=== PATIENT | male | born 2000 | race African-American/Black ===

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

== ENCOUNTER → 2019-03-15 | Outpatient (CLI) | payer OTHER ==
[2019-03-15 12:30] LABS: BASO # 0.1 10^3/uL (0.0-0.2); BASO % 0.9 % (0.0-1.0); EOS # 0.5 10^3/uL (0.0-0.5); EOS % 5.8 % (0.0-3.0); HEMATOCRIT 31.3 % (42.0-52.0); HEMOGLOBIN 7.6 g/dl (13.5-17.5); LYMPH # 1.7 10^3/uL (1.5-5.0); LYMPH % 19.5 % (24.0-44.0); MEAN CORPUSCULAR HEMOGLOBIN 15.8 pg (27.0-33.0); MEAN CORPUSCULAR HGB CONC 24.3 g/dl (32.0-36.5); MEAN CORPUSCULAR VOLUME 64.9 fl (80.0-96.0); MONO # 0.9 10^3/uL (0.0-0.8); MONO % 10.6 % (0.0-5.0); NEUTROPHILS # 5.3 10^3/uL (1.5-8.5); NEUTROPHILS % 62.8 % (36.0-66.0); PLATELET COUNT, AUTOMATED 437 10^3/uL (150-450); RED BLOOD COUNT 4.82 10^6/uL (4.30-6.10); WHITE BLOOD COUNT 8.5 10^3/uL (4.0-10.0)
[2019-03-15 13:18] LABS: BLOOD UREA NITROGEN 11 MG/DL (7-18); C REACTIVE PROTEIN QUANTITATIV 1.44 MG/DL (0.00-0.30); CALCIUM LEVEL 8.2 MG/DL (8.5-10.1); CARBON DIOXIDE LEVEL 26 MEQ/L (21-32); CHLORIDE LEVEL 111 MEQ/L (98-107); CREATININE FOR GFR 0.53 MG/DL (0.70-1.30); FERRITIN 3 NG/ML (26-388); FOLATE 23.5 NG/ML; FREE T4 0.97 NG/DL (0.78-1.33); GLUCOSE, FASTING 79 MG/DL (70-100); IRON (FE) 12 UG/DL (65-175); PERCENT SATURATION 4.4 % (19.7-50.0); SODIUM LEVEL 143 MEQ/L (136-145); TOTAL IRON BINDING CAPACITY 274 UG/DL (250-450); VITAMIN B12 LEVEL 366 PG/ML
[2019-03-15 13:30] LABS: ERYTHROCYTE SEDIMENTATION RATE 12 mm/hr (0-15)
== END ==
LOC: M LAB 11:27
PROVIDERS: ATTEND Internal Medicine Gastroenterology
DX: K50.80 Crohn's disease of both small and large intestine without complications (principal)

== ENCOUNTER → 2019-03-28 | Outpatient (CLI) | payer OTHER ==
[~2019-03-28] MED LIST changes: +E-Z-GAS II EFFERVESCENT PACKET (SODIUM BICARB./CITRIC ACID/SIMETHICONE) As Ordered ONE; +E-Z-HD 98% w/w 340GM SUSP BTL As Ordered ONE; +E-Z-PAQUE 96% w/w SUSP 176GM BTL As Ordered ONE
--- NOTE | 2019-03-29 11:15 | REP ---
UPPER GI AIR CONTRAST AND SMALL BOWEL FOLLOW THROUGH The procedure was performed under the direct supervision of Dr. Thurman. The images were reviewed with Dr. Thurman The comfort station supervisor film shows no organomegaly or pathological masses. The intestinal gas pattern is non-specific. Liquid barium and gas producing crystals were given in the erect position as well as liquid barium in the prone oblique position in order to perform a double contrast upper GI examination. Additionally liquid barium was given at the end of the examination in order to perform a small bowel follow through. The oral and pharyngeal stages of deglutition are unremarkable. Esophageal transport is prompt and efficient and there is no esophagitis, stricture, mucosal ring or hiatal hernia. There is gastroesophageal reflux demonstrated to above the level of the alfonzo. The stomach bueno are normally outlined . The rugal folds are smooth and regular. There is no gastritis neoplasm or ulcer disease. Within the descending duodenum there is mucosal irregularity and narrowing. These findings are consistent with the patient's history of Crohn disease. The visualized portion of the proximal small bowel appears normal in course and caliber. The barium column was followed through the small bowel to the level of the terminal ileum. Small bowel transit time is approximately 60 minutes . During fluoroscopy gentle palpation shows all loops are freely movable and pliable. There are no fixed or angulated loops. The small bowel mucosal pattern is normal in course and caliber. There is no transition to suggest a partial small-bowel obstruction. Spot filming of the terminal ileum shows a segment of mucosal irregularity measuring approximately 9 cm. These findings are consistent with the patient's history of Crohn's disease. Impression: 1. In the descending duodenum there is mucosal irregularity and narrowing. In the terminal ileum there is a segment of mucosal irregularity measuring approximately 9 cm. These findings are consistent with the patient's history of Crohn's disease. 2. There is gastroesophageal reflux demonstrated to above the level of the alfonzo. 3.6 minutes of fluoro time was utilized for this procedure. Electronically Signed by QUIN Dhillon 03/28/2019 05:38 P Electronically Signed by Mumtaz Thurman MD 03/29/2019 11:06 A
== END ==
LOC: M RAD 08:03
PROVIDERS: ATTEND Internal Medicine Gastroenterology
DX: K50.80 Crohn's disease of both small and large intestine without complications (principal)

== ENCOUNTER 2019-05-19 12:51 | Day surgery (SDC) | payer OTHER ==
[~2019-05-19] VITALS: Ht 167.6 cm; Wt 64.4 kg
[~2019-05-19 12:51] MED LIST changes: +DOCU100C16 PO; -E-Z-GAS II EFFERVESCENT PACKET (SODIUM BICARB./CITRIC ACID/SIMETHICONE) As Ordered ONE; -E-Z-HD 98% w/w 340GM SUSP BTL As Ordered ONE; -E-Z-PAQUE 96% w/w SUSP 176GM BTL As Ordered ONE; +FERR325T3 PO; +NS 1,000 ML IV ONE
[2019-05-19] MEDS ORDERED: LIDOCAINE 2% INJ 100 MG/5 ML SDV (FOR ANES.) As Ordered ONE (14:09)
[2019-05-19] MEDS ORDERED: PROPOFOL 200 MG/20 ML VIAL As Ordered ONE ×2 (14:09→14:27)
--- NOTE | 2019-05-19 14:56 | ROOR ---
Patient Name: Gwendolyn Vallejo Procedure Date: 05/19/2019 2:07 PM Date of : 2000 Age: 18 Room: [facility] Gender: Male Note Status: Finalized Procedure: Upper GI endoscopy Indications: Iron deficiency anemia, Crohn's disease Providers: Bridger Lara MD Referring MD: Johnathan SAMUEL MD Requesting Provider: Medicines: Monitored Anesthesia Care Complications: No immediate complications. Procedure: Pre-Anesthesia Assessment: - Prior to the procedure, a History and Physical was performed, and patient medications and allergies were reviewed. The patient is competent. The risks and benefits of the procedure and the sedation options and risks were discussed with the patient. All questions were answered and informed consent was obtained. Patient identification and proposed procedure were verified by the physician, the nurse and the anesthesiologist in the procedure room. Mental Status Examination: alert and oriented. Airway Examination: normal oropharyngeal airway and neck mobility. Respiratory Examination: clear to auscultation. CV Examination: normal. Prophylactic Antibiotics: The patient does not require prophylactic antibiotics. Prior Anticoagulants: The patient has taken no previous anticoagulant or antiplatelet agents. ASA Grade Assessment: III - A patient with severe systemic disease. After reviewing the risks and benefits, the patient was deemed in satisfactory condition to undergo the procedure. The anesthesia plan was to use monitored anesthesia care (MAC). Immediately prior to administration of medications, the patient was re-assessed for adequacy to receive sedatives. The heart rate, respiratory rate, oxygen saturations, blood pressure, adequacy of pulmonary ventilation, and response to care were monitored throughout the procedure. The physical status of the patient was re-assessed after the procedure. The Endoscope was introduced through the mouth, and advanced to the duodenal bulb. The Colonoscope was introduced through the mouth, and advanced to the second part of duodenum. The upper GI endoscopy was accomplished without difficulty. The patient tolerated the procedure well. Findings: No gross lesions were noted in the entire esophagus. The Z-line was irregular and was found 42 cm from the incisors. Scattered mild inflammation characterized by erythema, friability and granularity was found in the gastric antrum. Biopsies were taken with a cold forceps for Helicobacter pylori testing. Verification of patient identification for the specimen was done by the physician and nurse using the patient's name, date and medical record number. Estimated blood loss was minimal. An acquired benign-appearing, intrinsic severe stenosis was found in the first portion of the duodenum and was non-traversed. The scope was withdrawn and replaced with the 'babyscope' because of difficulty passing the scope and in order to visualize the major papilla. Biopsies were taken with a cold forceps for histology. Impression: - No gross lesions in esophagus. - Z-line irregular, 42 cm from the incisors. - Gastritis. Biopsied. - Acquired duodenal stenosis. Biopsied. Recommendation: - Patient has a contact number available for emergencies. The signs and symptoms of potential delayed complications were discussed with the patient. Return to normal activities tomorrow. Written discharge instructions were provided to the patient. - Chopped diet and mechanical soft diet. - Continue present medications. - Use Protonix (pantoprazole) 40 mg PO twice daily - to be taken in morning (1/2 hour before breakfast) and at bedtime ( atleast 3 hours after last meal) for 3 months. - Repeat upper endoscopy in 3 months to check healing and for surveillance based on pathology results. - Return to GI clinic in [facility] (address [address], [address], [place] [address]) in 4 -- 6 weeks. Please call GI clinic @ [phone] for apppointment date and time. - Return to primary care physician. Bridger Lara MD Bridger Lara MD 05/19/2019 2:56:13 PM Electronically signed by Bridger Lara MD Number of Addenda: 0 Note Initiated On: 05/19/2019 2:07 PM Estimated Blood Loss: Estimated blood loss was minimal.
[2019-05-19 15:15] VITALS: BP 128/58
--- NOTE | 2019-05-19 15:38 | ROOR ---
Patient Name: Gwendolyn Vallejo Procedure Date: 05/19/2019 2:07 PM Date of : 2000 Age: 18 Room: [facility] Gender: Male Note Status: Finalized Procedure: Colonoscopy Indications: Iron deficiency anemia, Disease activity assessment of Crohn's disease of the small bowel and colon, Assess therapeutic response to therapy of Crohn's disease of the small bowel and colon Providers: Bridger Lara MD Referring MD: Johnathan SAMUEL MD Requesting Provider: Medicines: Monitored Anesthesia Care Complications: No immediate complications. Procedure: Pre-Anesthesia Assessment: - Prior to the procedure, a History and Physical was performed, and patient medications and allergies were reviewed. The patient is competent. The risks and benefits of the procedure and the sedation options and risks were discussed with the patient. All questions were answered and informed consent was obtained. Patient identification and proposed procedure were verified by the physician, the nurse and the anesthesiologist in the procedure room. Mental Status Examination: normal. Airway Examination: normal oropharyngeal airway and neck mobility. Respiratory Examination: clear to auscultation. CV Examination: normal. Prophylactic Antibiotics: The patient does not require prophylactic antibiotics. Prior Anticoagulants: The patient has taken no previous anticoagulant or antiplatelet agents. ASA Grade Assessment: II - A patient with mild systemic disease. After reviewing the risks and benefits, the patient was deemed in satisfactory condition to undergo the procedure. The anesthesia plan was to use monitored anesthesia care (MAC). Immediately prior to administration of medications, the patient was re-assessed for adequacy to receive sedatives. The heart rate, respiratory rate, oxygen saturations, blood pressure, adequacy of pulmonary ventilation, and response to care were monitored throughout the procedure. The physical status of the patient was re-assessed after the procedure. The Colonoscope was introduced through the anus and advanced to the cecum, identified by appendiceal orifice and ileocecal valve. The colonoscopy was performed without difficulty. The patient tolerated the procedure well. The quality of the bowel preparation was poor. The terminal ileum, ileocecal valve, appendiceal orifice, and rectum were photographed. Scope insertion time was 4 minutes. Scope withdrawal time was 8 minutes. The total duration of the procedure was 12 minutes. Findings: The perianal and digital rectal examinations were normal. A benign-appearing, intrinsic severe stenosis measuring 9 mm (inner diameter) was found at the ileocecal valve and was non-traversed. Biopsies were taken with a cold forceps for histology. Verification of patient identification for the specimen was done by the physician and nurse using the patient's name, date and medical record number. Estimated blood loss was minimal. A healed ulcer was found in the transverse colon and in the ascending colon. The scar tissue was healthy in appearance. A scattered area of moderately erythematous mucosa was found in the recto-sigmoid colon. Biopsies were taken with a cold forceps for histology. Semi-liquid semi-solid stool was found in the entire colon, interfering with visualization. Lavage of the area was performed using a large amount of sterile water, resulting in incomplete clearance with fair visualization. Impression: - Preparation of the colon was poor. - Stricture at the ileocecal valve. Biopsied. - Scar in the transverse colon and in the ascending colon. - Erythematous mucosa in the recto-sigmoid colon. Biopsied. - Stool in the entire examined colon. Recommendation: - Patient has a contact number available for emergencies. The signs and symptoms of potential delayed complications were discussed with the patient. Return to normal activities tomorrow. Written discharge instructions were provided to the patient. - Chopped diet and mechanical soft diet. - Continue present medications. - Await pathology results. - Repeat colonoscopy in 6 months to evaluate the response to therapy and because the bowel preparation was poor. - Return to GI clinic in [facility] (address [address], [address], [place], [address]) in 4 -- 6 weeks. Please call GI clinic @ [phone] for apppointment date and time. - Return to primary care physician. Bridger Lara MD Bridger Lara MD 05/19/2019 3:37:56 PM Electronically signed by Bridger Lara MD Number of Addenda: 0 Note Initiated On: 05/19/2019 2:07 PM Estimated Blood Loss: Estimated blood loss: none.
== END 2019-05-19 15:50 | disposition home or self-care (01) ==
LOC: M OPP 12:51
PROVIDERS: ATTEND Internal Medicine Gastroenterology
DX: K50.812 Crohn's disease of both small and large intestine with intestinal obstruction (principal); K63.89 Other specified diseases of intestine; D50.9 Iron deficiency anemia, unspecified; K22.8 Other specified diseases of esophagus; K29.70 Gastritis, unspecified, without bleeding; K31.5 Obstruction of duodenum; K50.90 Crohn's disease, unspecified, without complications; Z79.899 Other long term (current) drug therapy

== ENCOUNTER 2019-06-01 16:05 | Outpatient (CLI) | payer OTHER ==
[~2019-06-01] VITALS: Ht 167.6 cm; Wt 64.4 kg
[~2019-06-01 16:05] MED LIST changes: -NS 1,000 ML IV ONE
[2019-06-01 16:23] VITALS: BP 148/94
[2019-06-01 16:50] VITALS: BP 138/61
[2019-06-01] MEDS ORDERED: PANT20TA2 PO (16:50)
[2019-06-01] MEDS ORDERED: VEDOLIZUMAB 300 MG in NS 250 ML IV ONE (17:00)
[2019-06-01 17:45] VITALS: BP 131/59
[2019-06-01 18:00] VITALS: BP 143/63
== END 2019-06-01 18:00 | disposition home or self-care (01) ==
LOC: M INFU 16:05
PROVIDERS: ATTEND Internal Medicine Gastroenterology
DX: K50.90 Crohn's disease, unspecified, without complications (principal); Z79.52 Long term (current) use of systemic steroids; Z79.899 Other long term (current) drug therapy
CPT/HCPCS: 96365; J3380

== ENCOUNTER → 2019-06-16 | Outpatient (CLI) | payer OTHER ==
[~2019-06-16] VITALS: Ht 167.6 cm; Wt 64.4 kg
[~2019-06-16] MED LIST changes: +PANT20TA2 PO; +VEDOLIZUMAB 300 MG in NS 250 ML IV ONE
[2019-06-16 16:43] VITALS: BP 138/63
[2019-06-16 17:39] VITALS: BP 135/60
== END ==
LOC: M INFU 16:23
PROVIDERS: ATTEND Internal Medicine Gastroenterology
DX: K50.90 Crohn's disease, unspecified, without complications (principal)
CPT/HCPCS: 96365; J3380

== ENCOUNTER → 2019-08-30 | Outpatient (CLI) | payer OTHER ==
[~2019-08-30] MED LIST changes: -VEDOLIZUMAB 300 MG in NS 250 ML IV ONE
[2019-08-30 10:31] LABS: BASO # 0.1 10^3/uL (0.0-0.2); BASO % 0.9 % (0.0-1.0); EOS # 0.5 10^3/uL (0.0-0.5); EOS % 5.7 % (0.0-3.0); HEMATOCRIT 43.2 % (42.0-52.0); LYMPH # 1.9 10^3/uL (1.5-5.0); LYMPH % 23.7 % (24.0-44.0); MEAN CORPUSCULAR HEMOGLOBIN 26.2 pg (27.0-33.0); MEAN CORPUSCULAR HGB CONC 30.1 g/dl (32.0-36.5); MEAN CORPUSCULAR VOLUME 86.9 fl (80.0-96.0); MONO # 0.8 10^3/uL (0.0-0.8); MONO % 9.8 % (0.0-5.0); NEUTROPHILS # 4.8 10^3/uL (1.5-8.5); NEUTROPHILS % 59.6 % (36.0-66.0); PLATELET COUNT, AUTOMATED 310 10^3/uL (150-450); RED BLOOD COUNT 4.97 10^6/uL (4.30-6.10)
[2019-08-30 10:55] LABS: ERYTHROCYTE SEDIMENTATION RATE 4 mm/hr (0-15)
[2019-08-30 10:58] LABS: ALBUMIN 3.1 GM/DL (3.2-5.2); ALT/SGPT 14 U/L (12-78); BILIRUBIN,DIRECT 0.1 MG/DL (0.0-0.2); BILIRUBIN,TOTAL 0.5 MG/DL (0.2-1.0); BLOOD UREA NITROGEN 8 MG/DL (7-18); C REACTIVE PROTEIN QUANTITATIV 1.02 MG/DL (0.00-0.30); CREATININE FOR GFR 0.67 MG/DL (0.70-1.30); FERRITIN 32 NG/ML (26-388); IRON (FE) 44 UG/DL (65-175); PERCENT SATURATION 16.1 % (19.7-50.0); TOTAL IRON BINDING CAPACITY 273 UG/DL (250-450)
[2019-08-30 11:32] LABS: VITAMIN B12 LEVEL 254 PG/ML
[2019-08-30 11:33] LABS: FOLATE 7.2 NG/ML
== END ==
LOC: M LAB 09:52
PROVIDERS: ATTEND Internal Medicine Gastroenterology
DX: D50.9 Iron deficiency anemia, unspecified (principal)

== ENCOUNTER 2019-09-07 15:57 | Outpatient (CLI) | payer OTHER ==
[~2019-09-07] VITALS: Ht 167.6 cm; Wt 64.4 kg
[2019-09-07 16:00] VITALS: BP 118/57
[2019-09-07] MEDS ORDERED: ENTY1INJ IV (16:26)
[2019-09-07] MEDS ORDERED: VEDOLIZUMAB 300 MG in NS 250 ML IV ONE (16:30)
[2019-09-07 17:10] VITALS: BP 149/66
== END 2019-09-07 17:10 | disposition home or self-care (01) ==
LOC: M INFU 15:57
PROVIDERS: ATTEND Internal Medicine Gastroenterology
DX: K50.90 Crohn's disease, unspecified, without complications (principal)
CPT/HCPCS: 96365; J3380

== ENCOUNTER → 2019-12-26 | Outpatient (CLI) | payer OTHER ==
[~2019-12-26] MED LIST changes: +ENTY1INJ IV; -PANT20TA2 PO; +PANT20TA6 PO; +PANT40TA29 PO; -PANT40TA3 PO
[2020-01-22 21:15] LABS: BASO # 0.1 10^3/uL (0.0-0.2); BASO % 0.8 % (0.0-1.0); EOS # 0.4 10^3/uL (0.0-0.5); EOS % 4.7 % (0.0-3.0); HEMATOCRIT 33.8 % (42.0-52.0); HEMOGLOBIN 9.5 g/dl (13.5-17.5); LYMPH # 1.9 10^3/uL (1.5-5.0); LYMPH % 23.9 % (24.0-44.0); MEAN CORPUSCULAR HEMOGLOBIN 21.3 pg (27.0-33.0); MEAN CORPUSCULAR HGB CONC 28.1 g/dl (32.0-36.5); MEAN CORPUSCULAR VOLUME 75.8 fl (80.0-96.0); MONO # 0.6 10^3/uL (0.0-0.8); MONO % 7.9 % (0.0-5.0); NEUTROPHILS # 4.9 10^3/uL (1.5-8.5); NEUTROPHILS % 62.3 % (36.0-66.0); PLATELET COUNT, AUTOMATED 279 10^3/uL (150-450); RED BLOOD COUNT 4.46 10^6/uL (4.30-6.10); WHITE BLOOD COUNT 7.8 10^3/uL (4.0-10.0)
== END ==
LOC: M LAB 17:07
PROVIDERS: ATTEND Internal Medicine Gastroenterology
DX: D50.9 Iron deficiency anemia, unspecified (principal); K50.80 Crohn's disease of both small and large intestine without complications

== ENCOUNTER 2020-01-12 08:48 | Outpatient (CLI) | payer OTHER ==
[~2020-01-12 08:48] MED LIST changes: +VEDOLIZUMAB 300MG VIAL (ENTYVIO) (J3380 PER 1MG) ONE
== END 2020-01-12 10:25 | disposition home or self-care (01) ==
LOC: M INFU 08:48
PROVIDERS: ATTEND Internal Medicine Gastroenterology
DX: K50.90 Crohn's disease, unspecified, without complications (principal)
CPT/HCPCS: 96365; J3380

== ENCOUNTER 2022-10-21 12:29 | Emergency (ER) | payer OTHER ==
[~2022-10-21 12:29] MED LIST changes: -IBUP200T45 PO; +IBUP200T46 PO; -VEDOLIZUMAB 300MG VIAL (ENTYVIO) (J3380 PER 1MG) ONE
[2022-10-21] MEDS ORDERED: PIPERACILLIN/TAZOBACTAM SOD 4.5 GM in D5W MINI-BAG PLUS 50 ML IV ONE (12:45)
[2022-10-21] MEDS ORDERED: NS 1,800 ML in IV 1 EA IV ONE (12:45)
[2022-10-21 13:19] LABS: ABG BASE EXCESS -10.6 (-2.0-2.0); ABG HCO3 12.6 MMOL/L (22.0-26.0); ABG O2 SATURATION 98.3 % (95.0-99.0); ABG PARTIAL PRESSURE CO2 20.1 mmHg (35.0-45.0); ABG PARTIAL PRESSURE O2 115.8 mmHg (75.0-100.0); ABG STANDARD HCO3 15.8 MMOL/L. (22.0-26.0); ABG TOTAL CO2 13.2 MMOL/L (22.0-29.0); ABG pH (ARTERIAL) 7.416 UNITS (7.350-7.450)
[2022-10-21 13:46] LABS: AMPHETAMINES LEVEL URINE NEGATIVE (NEGATIVE); BARBITURATES URINE NEGATIVE (NEGATIVE); BENZODIAZEPINES URINE NEGATIVE (NEGATIVE); CANNABINOIDS URINE NEGATIVE (NEGATIVE); COCAINE METABOLITE URINE NEGATIVE (NEGATIVE); METHADONE URINE NEGATIVE (NEGATIVE); OPIATES URINE NEGATIVE (NEGATIVE); PHENCYCLIDINE URINE NEGATIVE (NEGATIVE)
[2022-10-21 13:55] LABS: BASO % 0.2 % (0.0-1.0); EOS % 0.1 % (0.0-3.0); HEMATOCRIT 23.8 % (42.0-52.0); LYMPH # 0.4 10^3/uL (1.5-5.0); LYMPH % 1.7 % (24.0-44.0); MEAN CORPUSCULAR HEMOGLOBIN 17.4 pg (27.0-33.0); MEAN CORPUSCULAR VOLUME 60.1 fl (80.0-96.0); MONO # 1.3 10^3/uL (0.0-0.8); MONO % 6.3 % (2.0-8.0); NEUTROPHILS # 18.9 10^3/uL (1.5-8.5); NEUTROPHILS % 90.5 % (36.0-66.0); RED BLOOD COUNT 3.96 10^6/uL (4.30-6.10); WHITE BLOOD COUNT 20.9 10^3/uL (4.0-10.0)
[2022-10-21 14:05] LABS: INR 1.76; PROTHROMBIN TIME 20.8 SECONDS (12.5-14.5)
[2022-10-21 14:06] LABS: PARTIAL THROMBOPLASTIN TIME 38.9 SECONDS (24.8-34.2)
[2022-10-21 14:11] LABS: AMORPHOUS SEDIMENT SMALL (NEGATIVE); APPEARANCE, URINE CLOUDY (CLEAR); BACTERIA, URINE AUTO NEGATIVE (NEGATIVE); BILIRUBIN, URINE AUTO NEGATIVE (NEGATIVE); BLOOD, URINE BLOOD 1+ (NEGATIVE); COLOR, URINE AMBER (YELLOW); GLUCOSE, URINE (UA) AUTO NEGATIVE (NEGATIVE); GRANULAR CAST, URINE AUTO 7 /LPF; KETONE, URINE AUTO NEGATIVE (NEGATIVE); LEUKOCYTE ESTERASE, URINE AUTO TRACE (NEGATIVE); MUCUS, URINE SMALL (NEGATIVE); NITRITE, URINE AUTO NEGATIVE (NEGATIVE); PROTEIN, URINE AUTO 1+ mg/dL (NEGATIVE); RBC, URINE AUTO 7 /HPF (0-3); SPECIFIC GRAVITY URINE AUTO 1.017 (1.002-1.035); SQUAMOUS EPITHELIAL CELL UR AU 0 /HPF (0-6); UROBILINOGEN, URINE AUTO 0.2 mg/dL (0.0-2.0); WBC, URINE AUTO 9 /HPF (0-3)
[2022-10-21 14:26] LABS: HEMOGLOBIN 6.9 g/dl (13.5-17.5); PLATELET COUNT, AUTOMATED 96 10^3/uL (150-450)
[2022-10-21 14:28] LABS: ETHYL ALCOHOL (ETHANOL) < 0.003 % (0.000-0.010)
[2022-10-21 14:29] LABS: AMYLASE 165 U/L (30-118); CPK CREATINE PHOSPHOKINASE 736 U/L (46-171)
[2022-10-21 14:35] LABS: INFLUENZA A AMPLIFICATION NEGATIVE (NEGATIVE); INFLUENZA B AMPLIFICATION NEGATIVE (NEGATIVE)
[2022-10-21 14:43] LABS: ALBUMIN 2.2 G/DL (3.2-5.2); ALKALINE PHOSPHATASE 90 U/L (46-116); ALT/SGPT 52 U/L (7.0-40); AST/SGOT 246 U/L (<34); BILIRUBIN,DIRECT 0.5 MG/DL (<0.4); BILIRUBIN,TOTAL 0.8 MG/DL (0.3-1.2); BLOOD UREA NITROGEN 78 MG/DL (9-23); CALCIUM LEVEL 6.5 MG/DL (8.5-10.1); CARBON DIOXIDE LEVEL 13 MMOL/L (20-31); CHLORIDE LEVEL 94 MMOL/L (98-107); CK-MB VALUE MASS 17.3 NG/ML (<3.6); CREATININE FOR GFR 5.66 MG/DL (0.70-1.30); GLOMERULAR FILTRATION RATE 16.2 (>60); GLUCOSE, FASTING 101 MG/DL (60-100); MB/CK RELATIVE INDEX 2.35 (< OR =4); POTASSIUM SERUM 2.9 MMOL/L (3.5-5.1); SODIUM LEVEL 123 MMOL/L (136-145); TOTAL PROTEIN 5.7 G/DL (5.7-8.2)
[2022-10-21 14:49] LABS: RSV AMPLIFICATION NEGATIVE (NEGATIVE)
[2022-10-21 15:32] LABS: LDH LACTATE DEHYDROGENASE 568 U/L (120-246)
[2022-10-21 15:47] LABS: SODIUM,RANDOM URINE 14 MMOL/L
[2022-10-21 16:05] LABS: OSMOLALITY URINE 295 MOSM/KG (50-1400)
[2022-10-21] MEDS ORDERED: VANCOMYCIN HCL 1,000 MG, VIAL MATE ADAPTER 1 EACH in NS 250 ML IV ONE (16:10)
[2022-10-21 17:30] VITALS: BP 111/53
[2022-10-21] MEDS ORDERED: ACETAMINOPHEN 1000MG 100ML IV BAG IV ONE (17:45)
== END 2022-10-21 18:08 | disposition short-term general hospital (02) ==
LOC: EDBD 12:29 → EDSEX 12:29 → EEVIPCON 12:29 → M ED 12:29
DX: I38 Endocarditis, valve unspecified (principal); N17.9 Acute kidney failure, unspecified; I63.9 Cerebral infarction, unspecified
CPT/HCPCS: 36600; 51701; 70450; 71045; 71250; 74176; 80047; 80048; 80076; 80307; 80503; 81001; 82077; 82150; 82550; 82553; 82803; 83605; 83615; 83935; 84300; 85025; 85046; 85049; 85055; 85610; 85730; 86140; 86850; 86900; 86901; 87040; 87077; 87086; 87186; 87631; 93005; 93041; 93306; 94760; 96361; 96365; 96367; 96375; 99285; J0131; J2543